=== PATIENT | female | born 1950 | race Caucasian/White ===

== ENCOUNTER 2019-08-29 02:45 | Inpatient (IN) | payer MEDICARE, BC ==
--- NOTE | 2019-08-29 02:55 | ED ---
Palpitations / Dysrhythmia - HPI Summary HPI Summary: The patient is a 69 y/o F arriving by ambulance to [facility] with palpitations since last night. She reports that she was getting ready for bed around 2230 last night when she felt rhythmic fast and pounding palpitations. She finally had gotten to sleep but then developed an abnormal sensation in the mid-sternal chest and into her right arm while the palpitations were still present. She took her BP at 0100 which was found to be 200/100 mmHg. In the ambulance, vitals were stable with BP of 180/90 mmHg. She notes that she had her HTN medication at 2100 last night as usual. She denies any SOB, nausea, diaphoresis , or dizziness. She felt okay during the day while at voodoo and at home. She does not have chest discomfort or palpitations now. This pain is different than when she had a NM in 1994 with stent placement in 2012 after having symptoms again. She has not had any episodes following the stent until now. Manager Psychology is Dr. Gomez. PMHx: DM, CAD, HLD, HTN, heart murmur. Nonsmoker, rare EtOH, no substance use. Medications reviewed. Allergies noted. - History of Current Complaint Hx Obtained From: Patient Onset/Duration: Lasting Hours, Resolved Timing: Constant Severity Initially: Moderate Severity Currently: None Character: Fast, Pounding Aggravating: Nothing Alleviating: Rest Associated Signs & Symptoms: Negative - Allergy/Home Medications Allergies/Adverse Reactions: Allergies Allergy/AdvReac Type Severity Reaction Status Date / Time No Known Allergies Allergy Verified 08/29/19 02:52 Home Medications: Home Medications Amlodipine Besylate [Amlodipine 2.5 mg tab] 2.5 mg PO DAILY 08/29/19 [History Confirmed 08/29/19] Ezetimibe 1 tab PO DAILY 08/29/19 [History Confirmed 08/29/19] Insulin Aspart [Novolog] 100 units .ROUTE SEE INSTRUCTIONS 08/29/19 [History Confirmed 08/29/19] Spironolactone 1 tab PO DAILY 08/29/19 [History Confirmed 08/29/19] PMH/Surg Hx/FS Hx/Imm Hx Endocrine/Hematology History: Reports: Hx Diabetes Cardiovascular History: Reports: Hx Angina, Hx Coronary Artery Disease - angioplasty 1994, Hx Hypercholesterolemia, Hx Hypertension, Hx Myocardial Infarction - 1994, Hx Valvular Heart Disease - heart murmur Denies: Hx Pacemaker/ICD Respiratory History: Denies: Hx Asthma, Hx Chronic Obstructive Pulmonary Disease (COPD) Musculoskeletal History: Denies: Hx Osteoporosis Sensory History: Reports: Hx Contacts or Glasses Denies: Hx Hearing Aid Opthamlomology History: Reports: Hx Contacts or Glasses Psychiatric History: Denies: Hx Panic Disorder - Cancer History Hx Chemotherapy: No Hx Radiation Therapy: No - Surgical History Surgical History: Yes Surgery Procedure, Year, and Place: CARDIAC STENT 06/11. PARTIAL PANCREATECTOMY. SPLEENECTOMY. Hx Anesthesia Reactions: No Infectious Disease History: No Infectious Disease History: Denies: Traveled Outside the [place] in Last 30 Days - Family History Known Family History: Positive: Hypertension - Social History Alcohol Use: Rare Hx Substance Use: No Substance Use Type: Reports: None Hx Tobacco Use: No Smoking Status (MU): Never Smoked Tobacco Review of Systems Negative: Skin Diaphoresis Positive: Palpitations - fast, pounding, Other - mid-sternal chest discomfort into right arm Negative: Shortness Of Breath Negative: Nausea All Other Systems Reviewed And Are Negative: Yes Physical Exam - Summary Physical Exam Summary: Appearance: Well-appearing, Well-nourished, lying in bed comfortably Skin: Warm, dry, no obvious rash Eyes: sclera anicteric, no conjunctival pallor ENT: mucous membranes moist, pharynx appears normal Neck: Supple, nontender Respiratory: Clear to auscultation, no signs of respiratory distress Cardiovascular: Normal S1, S2. No murmurs. Normal distal pulses in tibial and radial bilaterally. Abdomen: Soft, nontender, normal active bowel sounds present Musculoskeletal: Normal, Strength/ROM Intact Neurological: A&Ox3, awake and alert, mentation is normal, speech is fluent and appropriate Psychiatric: affect is normal, does not appear anxious or depressed Triage Information Reviewed: Yes Vital Signs Reviewed: Yes Procedures - Sedation Patient Received Moderate/Deep Sedation with Procedure: No Diagnostics - Laboratory Result Diagrams: 08/29/19 03:18 08/29/19 03:18 Lab Statement: Any lab studies that have been ordered have been reviewed, and results considered in the medical decision making process. - Radiology CXR Radiology Interpretation Completed By: ED Physician Summary of Radiographic Findings: No acute abnormality. ED physician has reviewed and interpreted this imaging report. Pending official read. - EKG 0301 Cardiac Rate: NL - 77 bpm EKG Rhythm: Sinus Rhythm Summary of EKG Findings: NSR at 77 BPM, incomplete LBBB, LVH. No STEMI. ED physician has reviewed and interpreted this EKG. 0443 Cardiac Rate: NL - 73 bpm EKG Rhythm: Sinus Rhythm Summary of EKG Findings: NSR at 73 BPM. LVH with secondary repolarization abnormality. No STEMI. ED physician has reviewed and interpreted this EKG. Re-Evaluation - Re-Evaluation First Eval Re-Evaluation Time: 04:15 Comment: Discussed results and plan for admission. Course/Dx - Course Course Of Treatment: 69 y/o F who has a history of NM with stents, HTN, CAD, HLD , and heart murmur, arriving by ambulance with rhythmic fast and pounding palpitations lasting since 2230 last night accompanied by abnormal sensation in the mid-sternal chest and into her right arm, all of which have since subsided. No SOB, nausea, diaphoresis, or dizziness. Physical exam reveals no acute abnormalities. Blood work obtained and reveals WBCs of 12.4, MCH of 33, sodium of 132, glucose of 349, and troponin of 0.32. Patient administered Insulin for hyperglycemia, Aspirin and Heparin. EKG at 0301 reveals NSR at 77 BPM, incomplete LBBB, LVH. Second EKG at 0443 reveals NSR at 73 BPM, LVH with secondary repolarization abnormality. Chest x-ray, per my interpretion, is negative for acute abnormality. Dr. Martinez from the hospitalist services accepts the patient for admission. Patient understands and agrees with plan. Dx of NSTEMI. - Diagnoses Provider Diagnoses: NSTEMI (non-ST elevated myocardial infarction) - Physician Notifications Discussed Care Of Patient With: Josh Martinez - hospitalist Time Discussed With Above Provider: 04:00 Instructed by Provider To: Other - I discussed the patient's case with Dr. Martinez , who accepts the patient for admission. - Critical Care Time Critical Care Time: 30-74 min - NSTEMI needing IV heparin and admission to hospital Discharge ED - Sign-Out/Discharge Documenting (check all that apply): Patient Departure - Patient accepted for admission by Dr. Martinez. - Discharge Plan Condition: Fair Disposition: ADMITTED TO [facility] - Billing Disposition and Condition Condition: FAIR Disposition: Admitted to [facility] - Attestation Statements Document Initiated by Jessica: Yes Documenting Scribe: Yolanda Robb Provider For Whom Jessica is Documenting (Include Credential): Dr. Chauncey Edwards MD Scribe Attestation: I, esha Bookeribed for Dr. Chauncey Edwards MD on 08/30/19 at 1050. Scribe Documentation Reviewed: Yes Provider Attestation: The documentation as recorded by the Yolanda burch accurately reflects the service I personally performed and the decisions made by me, Dr. Chauncey Edwards MD Status of Scribe Document: Viewed
[2019-08-29 03:25] LABS: ABS Basophils 0.1 10^3/ul (0-0.2); ABS Eosinophils 0.1 10^3/ul (0-0.6); ABS Lymphocytes 2.2 10^3/ul (1.0-4.8); ABS Monocytes 0.8 10^3/ul (0-0.8); ABS Neutrophils 9.1 10^3/ul (1.5-7.7); Eosinophil % 0.8 %; Hematocrit 38 % (35-47); Lymphocyte % 18.1 %; Mean Corpuscular HGB Conc 34 g/dL (31-36); Mean Corpuscular Hemoglobin 33 pg (27-31); Mean Corpuscular Volume 96 fL (80-97); Mean Platelet Volume 7.9 fL (7.4-10.4); Nucleated Red Blood Cells % 0.1; Platelet Count 277 10^3/uL (150-450); Red Blood Count 3.95 10^6 /uL (3.70-4.87); Red Cell Distribution Width 13 % (10-15); White Blood Count 12.4 10^3/uL (3.5-10.8)
[2019-08-29 03:29] LABS: INR 0.93 (0.82-1.09)
--- OUTSIDE RECORDS SUMMARY | 2019-08-29 03:38 | XMS REPORT | Continuity of Care Document ---
:1950 External Reference #:[id number] Author Name Cortney Bal NP (transmitted by agent of provider Lenora Lima) Address [address], [address] [place] [id number] Problems Active Problems Provider Date Mitral valve disorder Joaquin Gomez M.D. Onset: 04/21/2012 Coronary arteriosclerosis Joaquin Gomez M.D. Onset: 04/21/2012 Type 2 diabetes mellitus Joaquin Gomez M.D. Onset: 04/21/2012 Pure hypercholesterolemia Joaquin Gomez M.D. Onset: 04/21/2012 Benign essential hypertension Yue Husain N.Joy Onset: 06/24/2012 Type 1 diabetes mellitus Yue Husain, NNatePNate Onset: 06/24/2012 Fecal Smearing Unruly Mathew M.D. Onset: 12/16/2013 Atherosclerotic heart disease of [place] CARLOS Jenkins Onset: 05/22/2015 coronary artery without angina pectoris Essential hypertension CARLOS Jenkins Onset: 05/22/2015 Social History Type Date Description Comments Sex Unknown Tobacco Use Start: Unknown Never Smoked Cigarettes Second hand smoke Smoking Status Reviewed: 07/19/19 Never Smoked Cigarettes Second hand smoke ETOH Use Denies alcohol use Tobacco Use Start: Unknown Patient has never smoked Recreational Drug Use Negative For Denies Drug Use Exercise Type/Frequency Exercises sporadically Allergies, Adverse Reactions, Alerts Description No Known Drug Allergies Medications Active Medications SIG Qnty Indications Ordering Provider Date Amlodipine Besylate 1 by mouth 90tabs R60.9 Joaquin Jalloh 05/04/2019 2.5mg every day Garrett Gomez Tablets Spironolactone 1 by mouth 90tabs R60.9 Joaquin Jalloh 05/04/2019 25mg Tablets every day Garrett Gomez Zetia 1 by mouth 90tabs Carmen Caruso, 10/06/2016 10mg Tablets every day N.P. Crestor 1 by mouth 90tabs Joaquin Jalloh 09/22/2016 10mg Tablets every day Garrett Gomez Nitrostat one sl q5min up 25tabs Joaquin Jalloh 06/24/2012 0.4mg Tablets Sub to 3 doses as Garrett Gomez needed chest pain Altace 1 by mouth 90caps Joaquin Jalloh 05/04/2003 5mg Capsules every day Garrett Gomez Vitamin D3 1 tablet po Unknown 2000Units daily during summer months 2 po qd winter months Vitamin B12 1 tablet twice 90tabs Unknown 500mcg Tablets weekly Aspirin 1 by mouth Unknown 81mg Tablets every day Novolog (Insulin Pump) Unknown Medications Administered in Office Medication SIG Qnty Indications Ordering Provider Date Inj, Regadenoson, 0.1 MG Dominic Turner M.D. 11/25/2018 Injection Technetium TC 99M Tetrofosmin, Dominic Turner M.D. 11/25/2018 Per Unit Dose Up To 40 Millicuries Injection Immunizations Description No Information Available Vital Signs Date Vital Result Comment 07/19/2019 11:31am Height 68 inches 5'8" Weight 160.50 lb Heart Rate 62 /min BP Systolic Sitting 132 mmHg Lue reg cuff BP Diastolic Sitting 58 mmHg Lue reg cuff O2 % BldC Oximetry 96 % On Ra BMI (Body Mass Index) 24.4 kg/m2 05/24/2019 9:43am Height 68 inches 5'8" Weight 165.00 lb with shoes Heart Rate 60 /min BP Systolic Sitting 128 mmHg Rue reg cuff BP Diastolic Sitting 60 mmHg Rue reg cuff BP Systolic Standing 138 mmHg Rue reg cuff BP Diastolic Standing 60 mmHg Rue reg cuff Respiratory Rate 13 /min BMI (Body Mass Index) 25.1 kg/m2 Ejection Fraction 60-65% ECHO 11/22/2018 Results Test Acquired Facility Test Result H/L Range Note Date Laboratory test 05/23/2019 [facility] TSH (Thyroid 1.03 Normal 0.34-5.[address] Stimulating mcIU/[place] [address] Horm) [phone] Basic Metabolic 05/23/2019 [facility] Sodium 139 mmol/L Normal 135-[address] [place] [address] [phone] Potassium 4.3 mmol/L Normal 3.5-5.0 Chloride 104 mmol/L Normal 101-111 Co2 Carbon Dioxide 27 mmol/L Normal 22-32 Anion Gap 8 mmol/L Normal 2-11 Calcium 9.4 mg/dL Normal 8.6-10.3 Glucose 97 mg/dL Normal 70-100 Blood Urea Nitrogen 27 mg/dL High 6-24 Creatinine 1.10 mg/dL High 0.51-0.95 BUN/Creatinine Ratio 24.5 High 8-20 Egfr Non- 49.1 >60 Egfr 59.4 >60 2 Laboratory test 05/23/2019 [facility] Vitamin D 47.5 ng/mL Normal 20-[address] Total [address](Oh) [place] [address] [phone] 1 FASTING in 2 weeks Copy Result to: JUSTEN BURDEN ([id number]) 2 Because ethnic data is not always readily available, this report includes an eGFR for both -Americans and non- Americans. The National Kidney Disease Education Program (NKDEP) does not endorse the use of the MDRD equation for patients that are not between the ages of 18 and 70, are , have extremes of body size, muscle mass, or nutritional status, or are non- or non-. According to the National Kidney Foundation, irrespective of diagnosis, the stage of the disease is based on the level of kidney function: Stage Description GFR(mL/min/1.73 m(2)) 1 Kidney damage with normal or decreased GFR 90 2 Kidney damage with mild decrease in GFR 60-89 3 Moderate decrease in GFR 30-59 4 Severe decrease in GFR 15-29 5 Kidney failure <15 (or dialysis) 3 Total 25-Hydroxyvitamin D2 and D3 (25-OH-VitD) <10 ng/mL (severe deficiency) 10-19 ng/mL (mild to moderate deficiency) 20-50 ng/mL (optimum levels) 51-80 ng/mL (increased risk of hypercalciuria) >80 ng/mL (toxicity possible) Procedures Date Code Description Status 05/23/2019 11875 Holter Monitor Review (24 hr)dr vega & interp only Completed 05/16/2019 35703 ECG Monitor/Recording W/Visual Superimposition Scanning Completed 05/11/2019 62811 Sleep Study Unattended,HRT Rate,Oxygen Sat,Resp Completed Effort/Airflow 05/04/2019 08714 EKG Tracing & Interpretation Completed Medical Devices Description No Information Available Encounters Type Date Location Provider Dx Diagnosis Office Visit 05/24/2019 [facility] Carmen Caruso, I10 Essential ( primary) 10:00a Of Software Program Manager N.P. hypertension I35.0 Nonrheumatic aortic (valve) stenosis I25.10 Athscl heart disease of [place] coronary artery w/o ang pctrs I44.7 Left bundle-branch block, unspecified Office Visit 05/11/2019 9:30a [facility] G47.9 Sleep disorder, [facility] unspecified Software Program Manager R53.83 Other fatigue Office Visit 05/04/2019 11:20a [facility] Joaquin Jalloh I10 Essential (primary) Garrett Gomez hypertension I35.0 Nonrheumatic aortic (valve) stenosis I71.2 Thoracic aortic aneurysm, without rupture I25.10 Athscl heart disease of [place] coronary artery w/o ang pctrs I44.7 Left bundle-branch block, unspecified E78.00 Pure hypercholesterolemia, unspecified R42 Dizziness and giddiness R60.9 Edema, unspecified Assessments Date Code Description Provider 07/19/2019 G47.33 Obstructive sleep apnea (adult) Cortney Bal NP (pediatric) 07/19/2019 R53.83 Other fatigue Cortney Bal NP 05/24/2019 I10 Essential (primary) hypertension Carmen Caruso, N.P. 05/24/2019 I35.0 Nonrheumatic aortic (valve) stenosis Carmen Caruso, N.P. 05/24/2019 I25.10 Atherosclerotic heart disease of [place] Carmen Caruso, N.P. coronary artery with 05/24/2019 I44.7 Left bundle-branch block, unspecified Carmen Caruso, N.P. 05/23/2019 R42 Dizziness and giddiness Joaquin Gomez M.D. 05/16/2019 R42 Dizziness and giddiness Nurse Visit IC 05/11/2019 R06.83 Snoring Pearl Iniguez MD 05/11/2019 G47.9 Sleep disorder, unspecified Pearl Iniguez MD 05/11/2019 R53.83 Other fatigue Pearl nIiguez MD 05/04/2019 I10 Essential (primary) hypertension Joaquin Gomez M.D. 05/04/2019 I35.0 Nonrheumatic aortic (valve) stenosis Joaquin Gomez M.D. 05/04/2019 I71.2 Thoracic aortic aneurysm, without rupture Joaquin Gomez M.D. 05/04/2019 I25.10 Atherosclerotic heart disease of [place] Joaquin Gomez M.D. coronary artery with 05/04/2019 I44.7 Left bundle-branch block, unspecified Joaquin Gomez M.D. 05/04/2019 E78.00 Pure hypercholesterolemia, unspecified Joaquin Gomez M.D. 05/04/2019 R42 Dizziness Joaquin Gomez M.D. 05/04/2019 R60.9 Edema Joaquin Gomez M.D. Plan of Treatment Future Appointment(s):09/05/2019 10:00 am - Cortney Bal NP at [facility]09/07/2019 11:40 am - Joaquin Gomez M.D. at [facility]07/19/2019 - Cortney Bal NPG47.33 Obstructive sleep apnea (adult) (pediatric)Follow up:6 weeksRecommendations:You are being set up with CPAP for your sleep apnea through [facility] . 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 If you have difficulty with your equipment, or need to replace your mask or hoses, please contact your homecare agency. If you have any further questions, please call the [facility] at [phone] Ifyou have any sleepiness while driving you MUST avoid operating a vehicle or machinery. If you feel tired while driving brisket puller and take a nap or switch drivers. If you know you are sleepy and need togo somewhere, arrange for a ride or use public transportation. It is very important to not risk yoursafety or the safety of others.R53.83 Other fatigue Functional Status Description No Information Available Mental Status Description No Information Available Referrals Description No Information Available
[2019-08-29 03:41] LABS: ALT 11 U/L (7-52); AST 18 U/L (13-39); Albumin/Globulin Ratio 1.3 (1-3); Alkaline Phosphatase 70 U/L (34-104); Anion Gap 6 mmol/L (2-11); BUN/Creatinine Ratio 22.3 (8-20); Blood Urea Nitrogen 21 mg/dL (6-24); CO2 Carbon Dioxide 25 mmol/L (22-32); Calcium 8.9 mg/dL (8.6-10.3); Chloride 101 mmol/L (101-111); EGFR African American 71.2 (>60); EGFR Non-African American 58.9 (>60); Globulin 3.2 g/dL (2-4); Glucose 349 mg/dL (70-100); Sodium 132 mmol/L (135-145); Total Protein 7.2 g/dL (6.4-8.9)
[2019-08-29 03:51] LABS: Troponin I 0.32 ng/mL (<0.03)
[2019-08-29] MEDS ORDERED: Aspirin TAB* 325 MG PO ONE (03:59)
[2019-08-29] MEDS ORDERED: Heparin DRIP 25,000 UNITS(*) 25,000 UNITS/500 ML BAG IV SCH (04:00)
[2019-08-29] MEDS ORDERED: Heparin VIAL(*) 5000 UNITS/ML VIAL (FIVE THOUSAND) IV PRN (04:06)
[2019-08-29] MEDS ORDERED: Aspirin 81 mg CHEW TAB* 81 MG TAB.CHEW ONE (04:08)
[2019-08-29] MEDS ORDERED: Aspirin 81 mg CHEW TAB* 81 MG TAB.CHEW PO ONE (04:26)
[2019-08-29] MEDS: Insulin REGULAR(*) 1 UNITS UNIT SUBCUT ONE ×2 (04:27→05:15)
[2019-08-29 04:32] LABS: Activated Partial Thrombo Time 31.5 seconds (26.0-38.0)
[2019-08-29] MEDS ORDERED: Nitroglycerin TAB 0.4 MG* 0.4 MG TAB SL PRN (05:50)
[2019-08-29] MEDS ORDERED: Atenolol TAB* 25 MG PO SCH (06:00)
[2019-08-29] MEDS ORDERED: hydrALAZINE IV* 20 MG/ML VIAL IV SLOW PU PRN (06:06)
[2019-08-29 06:39] LABS: Cholesterol 143 mg/dL; HDL Cholesterol 63.1 mg/dL; LDL Cholesterol 72 mg/dL; Triglycerides 41 mg/dL
[2019-08-29 06:48] LABS: Troponin I 1.06 ng/mL (<0.03)
[2019-08-29] MEDS ORDERED: Ticagrelor* 90 MG TAB PO ONE (08:35)
--- NOTE | 2019-08-29 08:38 | HP ---
CC: Dr. Joaquin Gomez; Dr. Phuong Camara* ADMISSION HISTORY AND PHYSICAL: DATE OF ADMISSION: 08/29/19 PRIMARY CARE PHYSICIAN: Dr. Phuong Camara. BOSS MINER: Dr. Joaquin Gomez. CHIEF COMPLAINT: Palpitations and abnormal sensation in the chest. HISTORY OF PRESENT ILLNESS: This is a 69-year-old female with past medical history of coronary artery disease status post MD in 1994 with stenting in 2012 to [facility], history of diabetes, hypertension, dyslipidemia, and mitral valve disorder, here for palpitation and abnormal sensation in her chest. The patient states that she has been having cough for the last 5 days, nonproductive and was otherwise okay. Yesterday, she was getting ready to bed around 10:30 and she started feeling rhythmic, fast, pounding palpitations type sensation and she finally got some sleep; however, within half an hour of the sleep she started having abnormal sensation in the midsternal area, which was going to both arms and the palpitations were again back. She checked her blood pressure and found to be 200/100. She called the ambulance and en route to the ER they checked her BP again and was persistently elevated. By the time she reached the emergency room, her symptoms had resolved. She clearly states that she never actually had any chest pain, so she never received any nitro. She denies any shortness of breath, nausea, vomiting, or diaphoresis. No other abdominal pain, diarrhea, constipation, any urinary burning sensation or any fever or chills. No other numbness, tingling, or weakness. PAST MEDICAL HISTORY: As mentioned, coronary artery disease status post MD in 1994 with a stent placed in the RPDA in 2012 and then a followup cardiac cath in 2016, which was showing some nonobstructive cardiomyopathy, history of mild stool incontinence, type 2 diabetes diagnosed in her 40s initially was on oral medication, but recently switched to insulin pump, history of hypertension with hypercholesterolemia, mitral valve disease, and history of GI bleed for which she needed some cauterization, history of thrombotic thrombocytopenic purpura in 1971. 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 HOME MEDICATIONS: The patient is currently on: 1. Atenolol 12.5 mg oral daily. 2. NovoLog via insulin pump. 3. Vitamin B12 1 tablet oral daily. 4. Aspirin 81 mg oral daily. 5. Ezetimibe 1 tablet oral daily. 6. Vitamin D 4000 units oral daily. 7. Crestor 10 mg oral daily. 8. Ramipril 5 mg oral daily. 9. Nitroglycerin 0.4 mg sublingual p.r.n. pain. 10. Spironolactone 1 tablet oral daily. 11. Amlodipine 2.5 mg oral daily. ALLERGIES: No known drug allergies. FAMILY HISTORY: Father at age 92 with dementia. Mother at age 79 with stroke and a brother at age 57 after he had a kidney transplant and an MD. SOCIAL HISTORY: She never had any smoking, alcohol or drug use. She lives at home, used to live by herself but then recently her grandkids, who were roughly 9 years of age, are living with her. 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 REVIEW OF SYSTEMS: A 14-point review of system systems did not reveal any new information other than what is mentioned in the HPI. PHYSICAL EXAMINATION GENERAL: The patients is awake, alert, oriented to time place and person. VITAL SIGNS: In the ER BP was noted to be 183/76, heart rate 76, respiration rate 14, saturating 99% on room air, temperature recorded at 97.8. HEAD AND NECK: Atraumatic, normocephalic. Bilateral pupils were reactive. Oral mucosa was moist. Neck is supple. No jugular venous distention. LUNGS: Clear to auscultation bilaterally. No wheezing, rhonchi, or rales. HEART: S1, S2. Regular rate and rhythm. ABDOMEN: Soft, nontender, nondistended. DIAGNOSTIC STUDIES/LAB DATA: CBC was showing some mildly elevated white count of 12.4, hemoglobin and hematocrit and platelets were within normal limits. Coagulation profile unremarkable. Comprehensive metabolic panel was unremarkable except for minimally elevated random glucose at 349. Troponin I was elevated at 0.32. There was no old troponin to compare. EKG showed sinus rhythm with ST elevation in the V1, which is isolated with T- wave inversions in aVL, again isolated present in the both EKGs performed today. However, when compared to an old EKG from 2012, the T-wave inversions in aVL were not present and there was no ST elevation. The current EKG also shows some left bundle branch block, unclear if this is new or old. IMPRESSION: This is a 69-year-old female with history of coronary artery disease here due to palpitations and abnormal sensation noted to have abnormally elevated troponin at 0.32, likely [id number] myocardial infarction. ASSESSMENT: 1. Elevated troponin likely [id number] myocardial infarction. The patient was already started on heparin drip, may consult Cardiology in the morning and followup echocardiogram and consider stress test per Cardiology versus direct coronary catheterization to evaluate any obvious myocardial infarction. 2. History of diabetes. We will start the patient on a.c. fingersticks and considering continuing the insulin drip. 3. History of hypertension, appears to be in hypertensive emergency. We will start the patient on IV hydralazine and restart home BP medications and monitor blood pressure. 4. History of dyslipidemia. Restart his statin and check her lipid panel. 5. DVT prophylaxis. The patient already on a heparin drip. 6. Code status. Full code with daughterHortencia being healthcare proxy. [id number]/[id number] #: [id number] PARTHA
--- NOTE | 2019-08-29 08:44 | CONSULT ---
Subjective Date of Service: 08/29/19 Interval History: Date of admission and consult 08/29/2019 PCP: Dr. Camara [employer] Extension Educator: Dr. Gomez CC: chest and arm discomfort, racing heart Reason for consult: NSTEMI, probably type 1 [place] HPI: Malia Randle is a 69 year old woman with a history as below. She was in her usual state of health until she developed last night palpitations around 10 pm described as strong, fast, regular heart rate (objectively on home vitals was 120 bpm) and no arrhythmia here. This was associated with chest and bilateral arm discomfort that lasted a total of less than 4 hours and is now resolved. At one point, low dose atenolol was stopped due to bradycardia. She was admitted and ruled in for ACS and is being medically treated. She is currently pain free Pmhx: DM 1 on pump HTN Hyperlipidemia CAD Aortic stenosis ? HFpEF GI Bleed - (07/2006) developed on asa, plavix, and nsaids for sciatica. bleeding gastric ulcer. rxed with antral cautery by Dr. Mcwilliams. No longer takes nsaids, not currently on a ppi intermittent LBBB Allergies: No Known Drug Allergy 05/05/03 allergy list reviewed on 05/24/2019 FH: Diabetes, Heart Disease, Kidney Disease, Hypertension, Stroke, Hypercholesterolemia. Father: due to Stroke - at age 92. Mother: due to High Cholesterol Neurologic Disorder Confined To W/C. Siblings:2. Brother 1: due to Car Accident. Brother 2: due to Kidney Disease; R/T Diabetes Kidney Transplant. SH: Marital: .Lives With: Alone - Takes care of grandchildren. 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 Patient has never smoked. Denies alcohol use. Drug Use: Denies Drug Use. Medications Active Medications: Amlodipine Besylate (Norvasc Tab*) 2.5 mg PO DAILY [facility] Last Admin: 08/29/19 08:12 Dose: 2.5 mg Aspirin (Aspirin Ec Tab*) 81 mg PO DAILY [facility] Last Admin: 08/29/19 08:14 Dose: Not Given Atorvastatin Calcium (Lipitor*) 20 mg PO DAILY [facility] Last Admin: 08/29/19 08:14 Dose: 20 mg Cholecalciferol (Vitamin D Tab*) 4,000 units PO DAILY [facility] Last Admin: 08/29/19 08:13 Dose: 4,000 units Cyanocobalamin (Vitamin B12 Tab*) 500 mcg PO DAILY [facility] Last Admin: 08/29/19 08:14 Dose: 500 mcg Ezetimibe (Zetia Tab*) 10 mg PO DAILY [facility] Heparin Sodium (Porcine) (Heparin Vial(*)) 0 units IV .FOR BOLUSES PRN PRN Reason: HEPARIN DRIP BOLUSES Last Admin: 08/29/19 04:27 Dose: 4,000 units Hydralazine HCl (Apresoline Iv*) 5 mg IV SLOW PU Q6H PRN PRN Reason: Systolic Bp Greater Than:160 Heparin Sodium/Dextrose (Heparin Drip 25,000 Units(*)) 25,000 units in 500 mls @ 0 mls/hr IV PER RATE [facility]; Protocol Last Admin: 08/29/19 04:28 Dose: 14.2 mls/hr Nitroglycerin (Nitroglycerin Tab 0.4 Mg*) 0.4 mg SL . NEEDED PRN PRN Reason: chest pain Ramipril (Altace Cap*) 5 mg PO BEDTIME [facility] Spironolactone (Aldactone Tab*) 25 mg PO DAILY [facility] Last Admin: 08/29/19 08:14 Dose: 25 mg Ticagrelor (Brilinta*) 180 mg PO ONCE ONE Stop: 08/29/19 08:36 Ticagrelor (Brilinta*) 90 mg PO BID [facility] Home Medications: Aspirin [Aspir 81] 1 tab PO DAILY 06/24/12 [History Confirmed 08/29/19] Cholecalciferol TAB* [Vitamin D TAB*] 4,000 units PO DAILY 06/24/12 [History Confirmed 08/29/19] Cyanocobalamin [Vitamin B-12] 1 tab PO DAILY 06/24/12 [History Confirmed ] Ramipril CAP* [Altace CAP*] 5 mg PO DAILY 12/04/14 [History Confirmed 08/29/19] Nitroglycerin TAB 0.4 MG* 0.4 mg SL . NEEDED PRN 04/22/16 [History Confirmed 08/29/19] Rosuvastatin Calcium [Crestor] 10 mg PO DAILY 04/22/16 [History Confirmed ] Amlodipine Besylate [Amlodipine 2.5 mg tab] 2.5 mg PO DAILY 08/29/19 [History Confirmed 08/29/19] Ezetimibe 1 tab PO DAILY 08/29/19 [History Confirmed 08/29/19] Insulin Aspart [Novolog] 100 units .ROUTE SEE INSTRUCTIONS 08/29/19 [History Confirmed 08/29/19] Spironolactone 1 tab PO DAILY 08/29/19 [History Confirmed 08/29/19] Review of Systems - Measurements Intake and Output: Intake and Output Last 24 Hours 08/27/19 08/28/19 08/29/19 08/30/19 06:59 06:59 06:59 06:59 Intake Total 38.4 Balance 38.4 Weight 150 lb Intake: Heparin 38.4 - Review of Systems Constitutional Symptoms: Negative: Weight Gain, Weight Loss, Fatigue, Fever Dermatology: Negative: Rash, Skin Lesions HEENT: Negative: Change in Hearing, Vertigo Eyes: Negative: Change in Vision, Double Vision Thyroid: Negative: Weight Loss, Weight Gain Pulmonary: Negative: Cough, Sputum, Hemoptysis, Respiratory Distress, Shortness of Breath, Asthma, Home Oxygen Cardiology: Negative: Shortness of Breath, Swelling of Ankles, Peripheral Vascular Dis, Syncope, Claudication, Paroxysmal Nocturnal Dyspnea, Orthopnea Gastroenterology: Negative: Blood in Stools, Haematemesis, Melena Genital - Urinary: Negative: Dysuria, Hematuria Musculoskeletal: Negative: Joint Pain, Joint Stiffness Endocrinology: Positive: Diabetes Negative: Polydipsia, Polyuria Hematologic/Lymphatic: Positive: Use of Antiplatelet Drugs Negative: Use of Anticoagulant Neurology: Negative: Change in Speech, Change in Sphincter Function, Change in Walking, Hx of Stroke\TIA, Hx Seizures Psychiatry: Negative: Unusual Anxiety, Suicidal Ideation Allergic/Immunologic: Negative: Hx HIV, Immunocompromise Review of Systems Statement: All other review of systems negative, unless stated above. Objective Vital Signs: Temp Pulse Resp BP Pulse Ox 98.2 F 65 16 147/58 97 08/29/19 08:02 08/29/19 08:02 08/29/19 08:02 08/29/19 08:02 08/29/19 08:02 Oxygen Devices in Use Now: None Appearance: nad, pleasant Ears/Nose/Mouth/Throat: Clear Oropharnyx, Mucous Membranes Moist Neck: NL Appearance and Movements; NL JVP, Trachea Midline Respiratory: Symmetrical Chest Expansion and Respiratory Effort, Clear to Auscultation Cardiovascular: RRR, No Edema, - - normal jvp, 1-2/6 systolic murmur Abdominal: NL Sounds; No Tenderness; No Distention Extremities: No Edema Skin: No Rash or Ulcers Neurological: Alert and Oriented x 3 Laboratory Results: 08/29/19 03:18 08/29/19 03:18 INR (Anticoag Therapy) 0.93 (0.82-1.09) 08/29/19 03:18 APTT 31.5 seconds (26.0-38.0) 08/29/19 03:18 Total Bilirubin 0.70 mg/dL (0.2-1.0) 08/29/19 03:18 AST 18 U/L (13-39) 08/29/19 03:18 ALT 11 U/L (7-52) 08/29/19 03:18 Alkaline Phosphatase 70 U/L (34-104) 08/29/19 03:18 Total Protein 7.2 g/dL (6.4-8.9) 08/29/19 03:18 Albumin 4.0 g/dL (3.2-5.2) 08/29/19 03:18 Globulin 3.2 g/dL (2-4) 08/29/19 03:18 Albumin/Globulin Ratio 1.3 (1-3) 08/29/19 03:18 Triglycerides 41 mg/dL 08/29/19 06:13 Cholesterol 143 mg/dL 08/29/19 06:13 LDL Cholesterol 72 mg/dL 08/29/19 06:13 HDL Cholesterol 63.1 mg/dL 08/29/19 06:13 08/29/19 08/29/19 03:18 06:13 Troponin I 0.32 H* 1.06 H* Diagnostic Imaging: Previous IL - (03/1995) cath 95% RPDA, 60% LAD, mild inferior hypokinesis. PTCA of RPDA. Cardiac Cath - (08/16/2009) 70% mid LAD, LCX nondom mid 75%, RCA dom free of sig disease, EF 55%. similar to 2006. med rx. Cardiac Catheterization - (04/23/2016) moderate to large PDA with a patent stent. Just beyond the stent there was a 30% stenosis. The LAD had luminal irregularities up to 30%. There was moderate plaque burden distally in the LAD. Circumflex had luminal irregularity , at most 30%. LV gram EF was 55% with mild dilatation of the ascending aorta. Cardiac Cath - (06/25/2012) chest pain, shortness of breath, inferior EKG changes. stress nuclear: 7 min (6 minutes of a Benigno and a reduced stage 2). chest discomfort during stage 2 with mild dyspnea requiring a slower pace and stop after 6 minutes, incomplete left bundle branch block with inferior lateral ST-T changes suggestive of ischemia. With exercise she had more pronounced QRS widening developing in the left bundle with more pronounced ST-T changes suggestive of ischemia large area of inferior posterior ischemia 06.25.[address] Walls: 60% proximal mid LAD lesion. LCX: moderate caliber vessel, proximal segment that is perhaps 50% lesion, right coronary artery with a large caliber dominant vessel and in proximal mid section there was plaquing up to 25%. The ostium of the right PDA: 99%, posterior lateral branch was a large distribution. EF nuclear scan was 65%. 2.5 x 16 mm Element stent in the PDA. Cardiac Cath - (03/2006) ef 40%, very small left cors. LAD mid 50%, LCX 70%, RCA non obstructive disease. Stress Test - (11/25/2018) [facility] Normal cardiac chemical nuclear stress test. No evidence of ischemia. No evidence of infarction. Normal left ventricular function. Low risk study. Ejection fraction: 64%. TID index: 0.77. Echocardiogram - (11/22/2018) Left ventricle cavity is normal size. Normal global wall motion. Visual EF is 55-60%. [place] trileaflet aortic valve with mild grade I (impaired)regurgitation. Mild to moderate aortic valve stenosis. Mild BY 2ND; Mild to moderate by continuity. Mild dilated ascending aorta. Carotid Doppler - (01/15/2018) 1. No hemodynamically significant stenosis of the right internal carotid artery by flow velocity measurements. This corresponds to a luminal diameter of less than 50% stenosis by NASCET criteria. 2. No hemodynamically significant stenosis of the left internal carotid artery by flow velocity measurements. This corresponds to a luminal diameter of less than 50% stenosis by NASCET criteria. Exam Date: 08/29/19 CHEST PA & LAT IMPRESSION: No acute cardiopulmonary process by radiograph. ekg 08/29/2019 NSR, LVH with repolarization abnormalities, unchanged on repeat Assessment/Plan Malia Randle is a 69 year old woman with PMHx including but not limited to UGIB on aspirin/plavix/nsaids as above, known CAD/IL as above, DM 1 admitted with NSTEMI likely type 1. Much less likely type 2 related to resolved arrhythmias. Currently pain free without hemodynamic instability, arrhythmia or CHF - Echocardiogram pending - Agree with medications as ordered except load brilinta 180 mg po x 1 now ( ordered) with 90 mg po bid and add PPI prophylaxis (ordered) - Suspect she would tolerate low dose toprol given the 05/2019 holter monitor but she is concerned with restarting beta-lakia so will hold off for now and reconsider prior to discharge - Cardiac catheterization with intent for revasculariation indicated and recommended. Risks, benefits and alternatives discussed and patient wishes to proceed. discussed with Dr. Mccarthy
[2019-08-29] MEDS ORDERED: Cholecalciferol TAB* 1000 UNITS PO SCH (09:00)
[2019-08-29] MEDS ORDERED: Cyanocobalamin TAB* 500 MCG PO SCH (09:00)
[2019-08-29] MEDS ORDERED: Ramipril CAP* 5 MG PO SCH ×2 (09:00→21:00)
[2019-08-29] MEDS ORDERED: Aspirin EC TAB* 81 MG TAB.EC PO SCH (09:00)
[2019-08-29] MEDS ORDERED: Ezetimibe TAB* 10 MG PO SCH (09:00)
[2019-08-29] MEDS ORDERED: Spironolactone TAB* 25 MG PO SCH (09:00)
[2019-08-29] MEDS ORDERED: Atorvastatin* 20 MG TAB PO SCH (09:00)
[2019-08-29] MEDS ORDERED: amLODIPine TAB* 5 MG PO SCH (09:00)
[2019-08-29] MEDS ORDERED: Pantoprazole TAB * 40 MG TAB PO SCH (09:00)
[2019-08-29 09:54] LABS: Troponin I 3.36 ng/mL (<0.03)
[2019-08-29] MEDS ORDERED: Perflutren Lipid Microsphere* 3 ML VIAL ONE (12:09)
[2019-08-29] MEDS ORDERED: Iodixanol 320 (CONTRAST) 100 ML SDV ONE (13:03)
[2019-08-29] MEDS ORDERED: fentaNYL* 50 MCG/ML 2 ML VIAL (100 MCG VIAL) ONE (13:03)
[2019-08-29] MEDS ORDERED: Midazolam* 1 MG/ML 5 ML VIAL (5 MG) ONE (13:03)
[2019-08-29] MEDS ORDERED: Heparin 2 UNITS/ML IVPREMIX* 2,000 ML IV ONE (13:04)
[2019-08-29] MEDS ORDERED: nitroGLYCERIN DRIP* 25,000 MCG/250 ML BTL ONE ×2 (13:04→16:55)
[2019-08-29] MEDS ORDERED: VERAPAMIL 2.5 MG/ML 2 ML VIAL ** 5 mg/2 ml ONE (13:04)
[2019-08-29] MEDS ORDERED: Heparin(*) 1000 UNIT/ML 10 ML VIAL CATH LAB IV ONE (13:04)
[2019-08-29] MEDS ORDERED: Lidocaine 1% INJ* 10 MG/ML 30 ML SDV ONE (13:04)
--- NOTE | 2019-08-29 13:30 | ECHO ---
*[facility]* [place] [address] Fax #: [phone] Transthoracic Echocardiogram Patient: Malia Randle : 1950 Study Date: 08/29/2019 Age: 69 Gender: F HR: 68 bpm Height: 68 in /172.7 cm BSA: 1.88 m^2 Weight: 163.7 lb /74.4 kg BMI: 24.9 kg/m^2 *Plating Foreman: * Cynthia Stanford RDCS RN *Referring Physician: * Johs Martinez *Reading Physician: * Kane Grimaldo MD Indications: Myocardial Infarction (new). History: Coronary artery disease. LA. PCI. Murmur. Risk factors: Hypertension. Diabetes mellitus. Dyslipidemia. Conclusions Summary: - Left ventricle: The cavity size is normal. Wall thickness is mildly increased. Systolic function is normal. The estimated ejection fraction is 60-65%. - Regional wall motion abnormality: Mild hypokinesis of the apical lateral and apical myocardium. - Right ventricle: The cavity size is normal. Systolic function is normal. - Left atrium: The atrium is normal in size. - Aortic valve: The findings are consistent with mild stenosis. There is mild to moderate regurgitation. - Pulmonary arteries: Systolic pressure can not be accurately estimated. Recommendations: Compared to prior study from 10/2018, apical wall motion abnormality now noted. Study data: Transthoracic echocardiogram. Procedure: Transthoracic echocardiography was performed. Image quality was fair. The study was technically limited due to difficult acoustic windows. Intravenous Definity 2 ml was administered to enhance imaging. Complete 2D, spectral Doppler, and color flow Doppler. Location: Bedside. Patient status: Inpatient. Patient room number: 442-02. Rhythm: Normal sinus rhythm. Findings Left ventricle: The cavity size is normal. Wall thickness is mildly increased. Systolic function is normal. The estimated ejection fraction is 60-65%. Regional wall motion abnormalities: Mild hypokinesis of the apical lateral and apical myocardium. There is no consistent Doppler evidence of clinically significant diastolic dysfunction. Right ventricle: The cavity size is normal. Systolic function is normal. Left atrium: The atrium is normal in size. Right atrium: The atrium is normal in size. Mitral valve: The leaflets are mildly thickened. There is no evidence of stenosis. There is mild regurgitation. Aortic valve: The annulus is calcified. The valve is trileaflet. The leaflets are mildly thickened and mildly calcified. The findings are consistent with mild stenosis. There is mild to moderate regurgitation. Tricuspid valve: The valve is structurally normal. There is no evidence of stenosis. There is mild regurgitation. Pulmonic valve: The valve is structurally normal. There is no evidence of stenosis. There is trace regurgitation. Aorta: Aortic root: The aortic root is not dilated. Ascending aorta: The ascending aorta is not dilated. Aortic arch: The aortic arch is not dilated. Pericardium: There is no pericardial effusion. Pulmonary arteries: The main pulmonary artery is normal-sized. Systolic pressure can not be accurately estimated. Systemic veins: Inferior vena cava: The vessel is normal in size. There is (>= 50%) respiratory change in the IVC dimension. Measurements Left ventricle Value Ref Aortic valve Value Ref CATALINA, LAX 4.3 cm 3.8 - 5.2 Nicolle diam, ED 2.0 cm ---- ESD, LAX 2.8 cm 2.2 - 3.5 Nicolle diam/bsa, ED 1.1 cm/m^2 ---- FS, LAX 35 % 27 - 45 Peak v, S 2.1 m/sec ---- PW, ED (H) 1.1 cm 0.6 - 0.9 VTI, S 49.0 cm ---- IVS/PW, ED 1 Mean grad, S 11.0 mm Hg ---- E', lat nicolle, TDI (L) 7.4 cm/sec >=10.0 Peak grad, S 18.0 mm Hg - --- E/e', lat nicolle, 9 LVOT/AV, VTI ratio 0.48 ---- TDI RYAN, VTI 1.50 cm^2 ---- E', med nicolle, TDI (L) 5.3 cm/sec >=7.0 RYAN, Vmax 1.60 cm^2 - --- E/e', med nicolle, 13 AR peak v 3.66 m/sec ---- TDI AR PHT 524 ms ---- E', avg, TDI 6.4 cm/sec AR peak grad 54 mm Hg ---- E/e', avg, TDI 11 <=14 Mitral valve Value Ref LVOT Value Ref Peak E 0.68 m/sec ---- Diam, S 2.00 cm Peak A 1.19 m/sec ---- Area 3.1 cm^2 Decel time 285 ms ---- Peak alondra, S 1.09 m/sec Peak E/A ratio 0.6 ---- VTI, S 23.5 cm Mean grad, S 2 mm Hg Pulmonic valve Value Ref SV 72 ml Peak v, S 0.9 m/sec ---- SV/bsa 38 ml/m^2 Peak grad, S 3.0 mm Hg ---- Ventricular septum Value Ref Aortic root Value Ref IVS, ED (H) 1.1 cm 0.6 - 0.9 Root diam 2.6 cm <4.1 Right ventricle Value Ref Ascending aorta Value Ref CATALINA, LAX 3.1 cm AAo AP diam, S 3.3 cm ---- CATALINA minor ax, A4C 2.8 cm 1.9 - 3.5 mid Aortic arch Value Ref Arch diam 2.9 cm ---- Left atrium Value Ref AP dim, ES 3.20 cm 2.70 - Decending aorta Value Ref 3.80 Ashleigh peak alondra 0.96 m/sec ---- ML dim, A4C 3.8 cm SI dim, A4C 4.3 cm Inferior vena cava Value Ref Vol/bsa, ES, 1-p 20 ml/m^2 11 - 40 Diam 1.8 cm ---- A4C Vol/bsa, ES, A/L 26 ml/m^2 16 - 34 Right atrium Value Ref ML dim, ES, A4C 3.2 cm 2.6 - 4.4 SI dim, ES, A4C 4.5 cm 3.4 - 5.3 Estimated RAP 3 mm Hg Legend: (L) and (H) kylie values outside specified reference range. Prepared and electronically signed by Kane Grimaldo MD 08/29/2019 13:29
[2019-08-29] MEDS ORDERED: Adenosine* 3 MG/ML VIAL ONE (14:43)
[2019-08-29] MEDS ORDERED: NS 0.9% 1000 ML** 1,000 ML IV SCH (15:30)
[2019-08-29] MEDS ORDERED: Insulin NOVOLOG* FOR INSULIN PUMP SUBCUT SCH (16:00)
[2019-08-29] MEDS ORDERED: amLODIPine TAB* 5 MG ONE (16:24)
[2019-08-29] MEDS ORDERED: amLODIPine TAB* 5 MG PO ONE (16:24)
[2019-08-29] MEDS ORDERED: Metoprolol Tartrate IV* 1 MG/ML 5 ML VIAL IV ONE (17:00)
[2019-08-29] MEDS ORDERED: nitroGLYCERIN DRIP* 25,000 MCG/250 ML BTL IV SCH (17:00)
[2019-08-29] MEDS ORDERED: Metoprolol Tartrate IV* 1 MG/ML 5 ML VIAL ONE (17:05)
[2019-08-29 19:18] VITALS: BP 157/73
[2019-08-29] MEDS ORDERED: Ticagrelor* 90 MG TAB PO SCH (21:00)
--- NOTE | 2019-08-29 23:44 | CATH ---
CC: Dr. Phuong Camara; Dr. Joaquin Gomez; [facility]* CARDIAC CATHETERIZATION REPORT: DATE OF PROCEDURE: 08/29/19 INDICATION FOR THE PROCEDURE: Asked by Dr. Kane Grimaldo (primary district supervisor in hospital) to perform cardiac catheterization in light of non-STEMI presentation. PROCEDURES: Coronary arteriography, diagnostic fractional flow reserve, analysis of proximal to mid left anterior descending artery lesion, left heart catheterization. CONSENT: The patient was interviewed and examined on the floor of the hospital where the risks and benefits were explained, she understood them and wished to proceed. PRE-CARDIAC CATHETERIZATION LABORATORY RESULTS: Hemoglobin and hematocrit of 13 and 38, platelet count 277,000, white count 12,400. The BUN and creatinine were 21 and 0.94. Sodium 132, potassium 4.0, chloride 101, bicarb 24. Troponin was 3.36. EQUIPMENT UTILIZED: 1. Right femoral artery sheath was an 11 cm length 5-Lebanese Yue sheath. 2. Diagnostic coronary catheters included an FL-4 curve 5-Lebanese catheter and FR-4 curve 5-Lebanese right coronary catheter. 3. The left heart catheterization catheter was a 5-Lebanese 145-degree angled pigtail catheter. 4. Diagnostic guidewire was a 150 length standard J-tip guidewire. 5. The fractional flow reserve catheter was an 185 cm length Comet pressure guidewire. 6. The closure device was a Mynx 5-Lebanese vascular closure device. MEDICATIONS GIVEN DURING THE PROCEDURE: The patient received local lidocaine in addition to 2000 units heparin bolus (the patient was already on a heparin drip prior to performing the DFR analysis). DESCRIPTION OF PROCEDURE: The patient was brought to the cardiovascular laboratory where a formal time-out was performed. She was prepped and draped in sterile fashion. Initially, the right radial artery was accessed by ultrasound and it was found to be borderline in size but attempts were made to cannulate it and were not successful. As this approach was aborted, no sheath was introduced. The right groin area was then anesthetized with 1% lidocaine, the right femoral artery was cannulated and the sheath was placed following by diagnostic coronary arteriography. Following this, an incision was made to perform DFR analysis of the mid left anterior descending artery lesion. ACT was drawn after additional heparin and was found to be in an acceptable range to place the wire. The wire was passed through the 5-Lebanese diagnostic catheter and initially collaborated just outside of the catheter. Following this, the fractional flow reserve wire was advanced across the mid left anterior descending artery area and assessment was recorded. Following this, the wire was removed. The artery was assessed to make sure no sequela from the procedure occurred. Following this, the catheter was removed and the sheath was removed and hemostasis was obtained with the Mynx closure device. Left heart catheterization was performed prior to the pressure analysis of the mid LAD lesion. The total contrast used was 110 cc of Omnipaque dye.Radition exposure - fluoro time -9.1mins, AirKerma - 958 mGy, DAP - [id number] RESULTS: HEMODYNAMIC DATA: Left heart catheterization reveals central aortic pressure 170/63 with a mean of 107. Left ventricular pressure 169 over left ventricular end- diastolic pressure of 16. (Of note, no left ventriculogram was performed as an extensive echocardiogram had already been performed just prior to the cardiac catheterization). CORONARY ARTERIOGRAPHY: A. Left coronary artery: 1. Left main: Widely patent. 2. Left anterior descending artery: Of note, the left anterior descending artery had calcium outlining it leading to the long segment leading to the first septal agricultural economist and first diagonal branch. Just past this point was an eccentric lesion which was difficult to visualize despite multiple views. Of note, seen in the LUANA caudal projection, there appeared to be either a significant ulcerated or an aneurysmal area extending from this region. Past this point, the rest of the left anterior descending artery proceeded to trifurcate into a moderate-sized diagonal branch with a thinner more medial diagonal branch and the continuation of what appears to be left anterior descending artery toward the apical region. The caliber of the medial diagonal branch was clearly small in nature. There were mild luminal irregularities but no critical lesion seen throughout these vessels. 3. Circumflex artery - a nondominant vessel supplying a very thin first obtuse marginal branch. The artery had a 75% lesion seen in the mid portion of the circumflex prior to leading to a trifurcating a low lying obtuse marginal branch. Of note, between the very first thin obtuse marginal branch and the low lying obtuse marginal branch, I cannot rule out the presence of a small occluded mid obtuse marginal branch. I did not see any significant retrograde filling along the course of that. B. Right coronary artery - a dominant vessel supplying a long PDA and 2 posterior left ventricular branches. There were mild luminal irregularities seen in the mid portion, but no significant stenosis seen. In the LEE projection, interestingly, at the distal area of the posterior descending artery , there appeared to be faint filling of collateralization to some artery at the apical lateral region of the heart. It is perhaps best seen in the AP cranial view of the right coronary artery at the end of the injection. Of note, the proximal portion of the posterior descending artery had a mild 35% obstruction noted. DIAGNOSTIC DIASTOLIC FRACTIONAL FLOW RESERVE ANALYSIS OF MID LAD: On placement of the pressure wire across the left anterior descending artery and obtaining diastolic fractional flow reserve analysis revealed a value of 0.77 consistent with a significant obstructive lesion. OVERALL ASSESSMENT: suggests the finding of significant disease involving the mid portion of left anterior descending artery as noted with fractional flow reserve analysis across this blockage. Mild disease present elsewhere, although distal vessels in general appeared to be small in caliber, most likely secondary to her underlying chronic insulin-requiring diabetes mellitus. It should be noted on her echocardiogram just prior to the cardiac catheterization , there was very mild hypokinesis noted to the apical lateral region of the left ventricle which may correlate to where the collateral blood flow was seen from the distal right coronary artery as described above. Of note, after extensive discussion with both Dr. Kane Marmolejo as well as with Dr. Amando Cortez, ticketing clerk at the [facility], he felt intervening on the mid LAD lesion given the potential aneurysmal area would make extending somewhat difficult in nature, especially with the calcium. He strongly would recommend debulking the region first with rotational atherectomy to assure a good result. We also discussed that he had possibility of bypassing to perhaps the largest of the 3 vessels of the LAD system and perhaps bypassing the low lying obtuse marginal branch which is compromised by the mid circumflex lesion. These recommendations will be discussed with the patient with consideration for transfer to [facility] for further management of her acute coronary presentation. [id number]/[facility] #: [id number] [facility]ITAL[facility]as
--- NOTE | 2019-08-30 03:52 | DS ---
CC: Dr. Camara; Dr. Gomez; Dr. Grimaldo; Dr. Mccarthy; Dr. Juno Cortez; Dr. Campbell DISCHARGE SUMMARY/TRANSFER SUMMARY: DATE OF ADMISSION: 08/29/19 DATE OF DISCHARGE: 08/29/19 PRIMARY CARE PROVIDER: Dr. Camara SEED SERVICE ADVISOR: Dr. Gomez. CONSULTING SEED SERVICE ADVISOR: Dr. Grimaldo. CONSULTING HOOP ROLLS OPERATOR: Dr. Mccarthy. HOOP ROLLS OPERATOR: At [facility], Dr. Juno Cortez. ACCEPTING HOSPITALIST: At [facility], Dr. Campbell. DISCHARGE DIAGNOSIS: Non-ST elevation myocardial infarction. SECONDARY DIAGNOSES: 1. Coronary artery disease. 2. Status post myocardial infarction in 1994 with stent placed to posterior diagonal artery in 2012 and followup cardiac cath in 2015. 3. Type 2 diabetes, on an insulin pump. 4. Hypertension. 5. Hyperlipidemia. 6. Aortic stenosis. 7. Probable heart failure with preserved ejection fraction. 8. Gastrointestinal bleed in 2005 while on aspirin, Plavix, and NSAIDs for sciatica. Endoscopy show ed gastric ulcer, treated with antral cautery, that she no longer takes NSAIDs, does not need PPIs. ALLERGIES: No known drug allergies. MEDICATIONS AT THE TIME OF TRANSFER: 1. Amlodipine 2.5 mg p.o. daily. 2. Aspirin 81 mg p.o. daily. 3. Atorvastatin 10 mg p.o. daily. 4. Cholecalciferol 4000 units p.o. daily. 5. Cyanocobalamin 500 mcg p.o. daily. 6. Ezetimibe 10 mg p.o. daily. 7. Hydralazine 5 g IV q.6 hours p.r.n. SBP greater than 160. 8. Insulin aspart per pump protocol. 9. Nitroglycerin drip at 5 mcg per min. 10. Pantoprazole 40 mg p.o. daily. 11. Ramipril 5 mg p.o. at bedtime. 12. Normal saline 100 mL an hour for 4 more hours should be completed at 7:30 p.m. 13. Spironolactone 25 mg p.o. daily. 14. Brilinta 90 mg p.o. b.i.d. The patient was on a heparin drip and this was discontinued prior to her cath. HOSPITAL COURSE: Ms. Randle is a 69-year-old with past medical history as stated above that presente d to the emergency room with complaints of palpitations and an abnormal sensation in her chest. Her initial troponin was 0.32 and it went up to 3.3. She was seen in consultation by Cardiology (Dr. Grimaldo) and his impression was the patient most likel y having non-STEMI type 1 and at the time his evaluation she was chest pain free without hemodynamic instability, arrhythmia, or signs of congestive heart failure. He contacted Interventional Cardiolog y and Dr. 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 Her mid circ umflex had 75% to 80% blockage and was a small caliber vessel. Proximal PDA from RCA had a 45% blocka ge. Due to all those findings including the heavily calcified proximal LAD, Dr. Mccarthy discussed the case with Dr. Juno Cortez, associate professor of education at [facility], and decision was ma de to transfer the patient to consider further treatment strategies including high risk PCI versus CA BG. After the cardiac cath, the patient remained hypertensive and initially she received amlodipine. As uncontrolled hypertension continued, the patient was started on nitroglycerin drip and she is now on 5 mcg/min with a blood pressure of 149/75. At the time of transfer, the patient denied chest pain, palpitations, shortness of breath. PHYSICAL EXAM: Vital Signs: Temperature 97.3, heart rate is 79, respiratory rate is 17, oxygen satu ration is 98% on room air, blood pressure is 149/75. General: The patient is a pleasant elderly lady lying on bed in no acute distress. CVS: Normal S1, S2. Regular rate and rhythm. Chest: Breath so unds bilaterally with no added sounds. Abdomen is soft, bowel sounds present. Extremities: No anayeli a. She has a clean dressing intact to the right groin area with no signs of active bleeding at this time. Neuro: She is alert x3. Able to move all 4 extremities. CONDITION AT THE TIME OF DISCHARGE: Fair. DISPOSITION: [facility]. STATUS IN HOSPITAL: Inpatient. DIET: N.p.o. ACTIVITY: Bedrest. Please keep in mind this is a summarized version of this patient's hospital stay. If you need more in formation, please feel free to call me at [phone] or obtain the full medical records. TIME SPENT: Approximately 45 minutes was spent to complete this discharge. [id number]/[facility] #: [id number]
== END 2019-08-29 19:45 | disposition short-term general hospital (02) | DRG 281 ==
LOC: ED 02:45 → MEDTELE 05:35 → ICU 18:23
PROVIDERS: ADMIT Internal Medicine; ATTEND Internal Medicine
PROC: B2111ZZ Fluoroscopy of Multiple Coronary Arteries using Low Osmolar Contrast (ICD-10-PCS; 2019-08-29)
PROC: 4A033BC Measurement of Arterial Pressure, Coronary, Percutaneous Approach (ICD-10-PCS; 2019-08-29)
PROC: 4A023N7 Measurement of Cardiac Sampling and Pressure, Left Heart, Percutaneous Approach (ICD-10-PCS; principal; 2019-08-29 13:15)
DX: I21.4 Non-ST elevation (NSTEMI) myocardial infarction (principal); I42.8 Other cardiomyopathies; I50.30 Unspecified diastolic (congestive) heart failure; I25.10 Atherosclerotic heart disease of native coronary artery without angina pectoris; E11.9 Type 2 diabetes mellitus without complications; E78.00 Pure hypercholesterolemia, unspecified; E78.5 Hyperlipidemia, unspecified; I44.7 Left bundle-branch block, unspecified; R00.1 Bradycardia, unspecified; I35.0 Nonrheumatic aortic (valve) stenosis; I11.0 Hypertensive heart disease with heart failure; Z96.41 Presence of insulin pump (external) (internal); Z79.4 Long term (current) use of insulin; Z79.82 Long term (current) use of aspirin; I25.2 Old myocardial infarction; Z95.5 Presence of coronary angioplasty implant and graft; Z87.11 Personal history of peptic ulcer disease; Z79.02 Long term (current) use of antithrombotics/antiplatelets; Z79.899 Other long term (current) drug therapy
CPT/HCPCS: 36415; 71046; 76937; 80053; 80061; 84484; 85025; 85347; 85610; 85730; 93005; 93306; 93458; 99284; A9270-GY; C1887; C8929; J0153; J1644; J2250; J3010; J3490

== ENCOUNTER 2021-04-09 12:03 | Observation (INO) ==
[2021-04-09 14:19] LABS: ABS Basophils 0.1 10^3/ul (0-0.2); ABS Eosinophils 0.1 10^3/ul (0-0.6); ABS Lymphocytes 2.6 10^3/ul (1.0-4.8); ABS Neutrophils 6.4 10^3/ul (1.5-7.7); Eosinophil % 1.4 %; Hematocrit 40 % (35-47); Hemoglobin 13.7 g/dL (12.0-16.0); Lymphocyte % 25.5 %; Mean Corpuscular HGB Conc 34 g/dL (31-36); Mean Corpuscular Hemoglobin 33 pg (27-31); Mean Corpuscular Volume 98 fL (80-97); Mean Platelet Volume 8.6 fL (7.4-10.4); Platelet Count 249 10^3/uL (150-450); Red Blood Count 4.12 10^6 /uL (3.70-4.87); Red Cell Distribution Width 13 % (10-15); White Blood Count 10.2 10^3/uL (3.5-10.8)
[2021-04-09 14:44] LABS: Albumin 4.3 g/dL (3.2-5.2); Albumin/Globulin Ratio 1.4 (1-3); Calcium 9.6 mg/dL (8.6-10.3); EGFR Non-African American 42.1 (>60); Globulin 3.1 g/dL (2-4); Potassium 4.4 mmol/L (3.5-5.0); Total Bilirubin 1.3 mg/dL (0.2-1.0); Total Protein 7.4 g/dL (6.4-8.9)
[2021-04-09] MEDS ORDERED: hydrALAZINE 20 mg/ml 1 ML Vial IV IV SLOW PU PRN (21:22)
[2021-04-10] MEDS ORDERED: Ondansetron 4 mg VIAL 2 MG/ML 2 ml VIAL IV PRN (00:32)
[2021-04-10] MEDS ORDERED: Insulin ASPART (NF) 1 UNIT SUBCUT SCH (06:00)
[2021-04-10] MEDS ORDERED: Enoxaparin 40 MG/0.4 ML SYR SUBCUT SCH (06:00)
[2021-04-10 07:17] LABS: HDL Cholesterol 55.2 mg/dL
[2021-04-10] MEDS ORDERED: Nitroglycerin 0.2 mg/hr PATCH (5 mg) TRANSDERM SCH (09:00)
[2021-04-10] MEDS ORDERED: Cholecalciferol (VIT D3) 1,000 unit TAB PO SCH (09:00)
[2021-04-10] MEDS ORDERED: Iodixanol (CONTRAST) 320 MG/ML 100 ML SDV IV ONE (09:15)
[2021-04-10] MEDS ORDERED: INSULIN ASPART FOR INSULIN PUMP SUBCUT SCH (11:00)
[2021-04-10 15:47] VITALS: BP 157/49
== END 2021-04-10 18:30 | disposition home or self-care (01) ==
LOC: ED 12:03 → MEDTELE 12:03
PROVIDERS: ADMIT Internal Medicine; ATTEND Hospitalist

== ENCOUNTER 2021-08-23 22:29 | Inpatient (IN) ==
[2021-08-23 23:05] LABS: ABS Basophils 0.2 10^3/ul (0-0.2); ABS Lymphocytes 1.7 10^3/ul (1.0-4.8); ABS Monocytes 0.6 10^3/ul (0-0.8); ABS Neutrophils 9.5 10^3/ul (1.5-7.7); Eosinophil % 0.2 %; Hematocrit 38 % (35-47); Hemoglobin 12.8 g/dL (12.0-16.0); Lymphocyte % 14.5 %; Mean Corpuscular HGB Conc 34 g/dL (31-36); Mean Corpuscular Hemoglobin 33 pg (27-31); Mean Corpuscular Volume 96 fL (80-97); Mean Platelet Volume 8.6 fL (7.4-10.4); Platelet Count 264 10^3/uL (150-450); Red Blood Count 3.93 10^6 /uL (3.70-4.87); Red Cell Distribution Width 13 % (10-15)
[2021-08-23 23:21] LABS: INR 1.03 (0.86-1.15)
[2021-08-23 23:22] LABS: ALT 12 U/L (7-52); AST 24 U/L (13-39); Albumin 4.3 g/dL (3.2-5.2); Albumin/Globulin Ratio 1.2 (1-3); Alkaline Phosphatase 65 U/L (35-149); Anion Gap 10 mmol/L (2-11); Blood Urea Nitrogen 29 mg/dL (6-24); CO2 Carbon Dioxide 23 mmol/L (22-32); Calcium 9.6 mg/dL (8.6-10.3); Chloride 99 mmol/L (101-111); Globulin 3.7 g/dL (2-4); Glucose 308 mg/dL (70-100); Potassium 4.6 mmol/L (3.5-5.0); Sodium 132 mmol/L (135-145); eGFR CKD-EPI 40.7 (>60)
[2021-08-23 23:36] LABS: Troponin I 0.27 ng/mL (<0.03)
[2021-08-24] MEDS ORDERED: Ondansetron 4 mg VIAL 2 MG/ML 2 ml VIAL IV ONE (00:22)
[2021-08-24] MEDS ORDERED: Morphine 4 MG/ML VIAL (1 ml) IV ONE (00:22)
[2021-08-24 02:11] LABS: Troponin I 0.57 ng/mL (<0.03)
[2021-08-24] MEDS: Heparin DRIP 25,000 UNITS BAG 25,000 UNITS/500 ML BAG IV SCH ×2 (04:39→18:00)
[2021-08-24] MEDS: Heparin 5000 UNITS/ML 1 mL VIAL IV SCH (04:39)
[2021-08-24 04:40] LABS: Troponin I 1.82 ng/mL (<0.03)
[2021-08-24] MEDS: Nitro 2% OINT (Nitroglycerin) 1 INCH/PAK TOPICAL SCH ×3 (05:20→12:28)
[2021-08-24 07:29] LABS: Troponin I 3.36 ng/mL (<0.03)
[2021-08-24 10:37] LABS: Troponin I 7.98 ng/mL (<0.03)
[2021-08-24] MEDS ORDERED: diPHENhydraMINE 25 mg TAB PO PRN (10:40)
[2021-08-24] MEDS ORDERED: NS 0.9% 1000 ml BAG 1,000 ML IV SCH ×2 (10:45→12:30)
[2021-08-24] MEDS ORDERED: Lidocaine 1% VIAL 10 MG/ML VIAL ONE (11:15)
[2021-08-24] MEDS ORDERED: fentaNYL 100 mcg/2 ml 50 MCG/ML VIAL ONE (11:15)
[2021-08-24] MEDS ORDERED: nitroGLYCERIN DRIP 25,000 MCG/250 ML BTL ONE (11:15)
[2021-08-24] MEDS ORDERED: Midazolam 5 mg/5 ml VIAL 1 mg/ml 5 ml VIAL (5 mg) ONE (11:15)
[2021-08-24] MEDS ORDERED: Heparin 2 UNITS/ML 1000 mls 2,000 ML IV ONE (11:15)
[2021-08-24] MEDS ORDERED: VERAPAMIL 2.5 MG/ML 2 ML VIAL ** 5 mg/2 ml ONE (11:15)
[2021-08-24] MEDS ORDERED: Heparin 1,000 UNIT/ML 10 ml (10,000 UNITS) CATHLAB/DIALYSIS ONE (11:15)
[2021-08-24] MEDS ORDERED: Iodixanol 320 (CONTRAST) 100 ML SDV ONE (11:27)
[2021-08-24] MEDS ORDERED: Nitro 2% OINT (Nitroglycerin) 1 INCH/PAK ONE (12:19)
[2021-08-24] MEDS ORDERED: Dextrose 50% Syringe 50 ml 25 GM/50 ML SYRINGE IV PUSH PRN (16:24)
[2021-08-24] MEDS: Nitro Patch Removal Reminder TOPICAL SCH (18:04)
[2021-08-24] MEDS: Insulin GLARGINE 100 un/ml 10 ml VIAL SUBCUT SCH (18:22)
[2021-08-24] MEDS ORDERED: Insulin GLARGINE 100 un/ml 10 ml VIAL SUBCUT SCH (21:00)
[2021-08-24] MEDS: Metoclopramide 5 MG/ML VIAL (10 mg) IV PRN (22:02)
[2021-08-25] MEDS: Heparin 5000 UNITS/ML 1 mL VIAL IV SCH (01:09)
[2021-08-25] MEDS: Nitro 2% OINT (Nitroglycerin) 1 INCH/PAK TOPICAL SCH ×2 (06:22→13:57)
[2021-08-25 08:51] LABS: ABS Basophils 0.2 10^3/ul (0-0.2); ABS Lymphocytes 2.2 10^3/ul (1.0-4.8); ABS Monocytes 1.1 10^3/ul (0-0.8); ABS Neutrophils 9.5 10^3/ul (1.5-7.7); Eosinophil % 0.1 %; Hematocrit 38 % (35-47); Hemoglobin 12.8 g/dL (12.0-16.0); Lymphocyte % 17.1 %; Mean Corpuscular HGB Conc 34 g/dL (31-36); Mean Corpuscular Hemoglobin 33 pg (27-31); Mean Corpuscular Volume 96 fL (80-97); Mean Platelet Volume 8.3 fL (7.4-10.4); Platelet Count 282 10^3/uL (150-450); Red Blood Count 3.95 10^6 /uL (3.70-4.87); Red Cell Distribution Width 13 % (10-15); White Blood Count 12.9 10^3/uL (3.5-10.8)
[2021-08-25] MEDS ORDERED: Flu vaccine *QUAD* 2021-22* 0.5 ML SYRINGE IM ONE (09:00)
[2021-08-25 09:09] LABS: Albumin 3.9 g/dL (3.2-5.2); Albumin/Globulin Ratio 1.1 (1-3); Calcium 9.5 mg/dL (8.6-10.3); Globulin 3.4 g/dL (2-4); HDL Cholesterol 57.3 mg/dL; Potassium 4.4 mmol/L (3.5-5.0); Total Bilirubin 1.4 mg/dL (0.2-1.0); Total Protein 7.3 g/dL (6.4-8.9); eGFR CKD-EPI 48.6 (>60)
[2021-08-25] MEDS: Insulin GLARGINE 100 un/ml 10 ml VIAL SUBCUT SCH (10:16)
[2021-08-25] MEDS: Metoclopramide 5 MG/ML VIAL (10 mg) IV PRN (14:13)
[2021-08-25] MEDS: Nitro Patch Removal Reminder TOPICAL SCH (18:43)
[2021-08-26] MEDS: Metoclopramide 5 MG/ML VIAL (10 mg) IV PRN (05:38)
[2021-08-26] MEDS: Nitro 2% OINT (Nitroglycerin) 1 INCH/PAK TOPICAL SCH ×2 (05:38→15:31)
[2021-08-26 06:14] LABS: ABS Basophils 0.1 10^3/ul (0-0.2); ABS Eosinophils 0.1 10^3/ul (0-0.6); ABS Monocytes 1.4 10^3/ul (0-0.8); ABS Neutrophils 8.4 10^3/ul (1.5-7.7); Eosinophil % 0.4 %; Hematocrit 38 % (35-47); Lymphocyte % 23.3 %; Mean Corpuscular HGB Conc 34 g/dL (31-36); Mean Corpuscular Hemoglobin 33 pg (27-31); Mean Corpuscular Volume 96 fL (80-97); Mean Platelet Volume 9.2 fL (7.4-10.4); Nucleated Red Blood Cells % 0.1; Platelet Count 282 10^3/uL (150-450); Red Blood Count 3.96 10^6 /uL (3.70-4.87); Red Cell Distribution Width 14 % (10-15)
[2021-08-26 06:31] LABS: Calcium 9.7 mg/dL (8.6-10.3); Potassium 4.3 mmol/L (3.5-5.0); eGFR CKD-EPI 44.9 (>60)
[2021-08-26] MEDS ORDERED: Flu vaccine *QUAD* 2021-22* 0.5 ML SYRINGE IM ONE (09:00)
[2021-08-26] MEDS: Insulin GLARGINE 100 un/ml 10 ml VIAL SUBCUT SCH (09:51)
[2021-08-26] MEDS ORDERED: Enoxaparin 40 MG/0.4 ML SYR SUBCUT SCH (17:00)
[2021-08-27 06:19] LABS: ABS Eosinophils 0.1 10^3/ul (0-0.6); ABS Monocytes 1.4 10^3/ul (0-0.8); ABS Neutrophils 7.6 10^3/ul (1.5-7.7); Eosinophil % 0.6 %; Hematocrit 39 % (35-47); Hemoglobin 13.4 g/dL (12.0-16.0); Lymphocyte % 30.4 %; Mean Corpuscular HGB Conc 34 g/dL (31-36); Mean Corpuscular Hemoglobin 33 pg (27-31); Mean Corpuscular Volume 95 fL (80-97); Mean Platelet Volume 9.2 fL (7.4-10.4); Platelet Count 266 10^3/uL (150-450); Red Blood Count 4.09 10^6 /uL (3.70-4.87); Red Cell Distribution Width 13 % (10-15); White Blood Count 13.1 10^3/uL (3.5-10.8)
[2021-08-27 06:35] LABS: Calcium 9.4 mg/dL (8.6-10.3); Potassium 4.2 mmol/L (3.5-5.0); eGFR CKD-EPI 44.5 (>60)
[2021-08-27] MEDS ORDERED: Insulin GLARGINE 100 un/ml 10 ml VIAL SUBCUT SCH (09:00)
[2021-08-28 05:26] LABS: ABS Eosinophils 0.1 10^3/ul (0-0.6); ABS Lymphocytes 2.3 10^3/ul (1.0-4.8); ABS Monocytes 1.5 10^3/ul (0-0.8); ABS Neutrophils 8.6 10^3/ul (1.5-7.7); Eosinophil % 0.8 %; Hematocrit 41 % (35-47); Hemoglobin 14.1 g/dL (12.0-16.0); Lymphocyte % 18.1 %; Mean Corpuscular HGB Conc 34 g/dL (31-36); Mean Corpuscular Hemoglobin 33 pg (27-31); Mean Corpuscular Volume 96 fL (80-97); Platelet Count 268 10^3/uL (150-450); Red Blood Count 4.29 10^6 /uL (3.70-4.87); Red Cell Distribution Width 13 % (10-15); White Blood Count 12.6 10^3/uL (3.5-10.8)
[2021-08-28 05:47] LABS: Calcium 9.6 mg/dL (8.6-10.3); Potassium 4.4 mmol/L (3.5-5.0); eGFR CKD-EPI 44.9 (>60)
[2021-08-28] MEDS ORDERED: Insulin GLARGINE 100 un/ml 10 ml VIAL SUBCUT SCH (09:00)
[2021-08-28 11:54] VITALS: BP 121/52
== END 2021-08-28 16:20 | disposition home or self-care (01) | DRG 280 ==
LOC: ED 22:29 → SUATTDRO 08-24 03:57 → EDHOLD 08-24 03:57 → MEDTELE 08-24 06:00
PROVIDERS: ADMIT Hospitalist; ATTEND Internal Medicine

== ENCOUNTER 2024-02-12 15:24 | Observation (INO) ==
[2024-02-12] MEDS: Iodixanol (CONTRAST) 320 MG/ML 100 ML SDV IV ONE (15:49)
[2024-02-12 15:57] LABS: ABS Basophils 0.1 10^3/uL (0.0-0.1); ABS Eosinophils 0.1 10^3/uL (0.0-0.5); ABS Lymphocytes 4.8 10^3/uL (1.0-4.8); ABS Monocytes 1.2 10^3/uL (0.0-0.9); ABS Neutrophils 6.4 10^3/uL (1.5-7.6); Eosinophil % 0.6 %; Hematocrit 42.7 % (35-45); Hemoglobin 14.6 g/dL (11.5-14.3); Lymphocyte % 38.1 %; Mean Corpuscular Hemoglobin 33.8 pg (27-33); Mean Corpuscular Hgb Conc 34.1 g/dL (31-36); Mean Platelet Volume 8.7 fL (7.5-11.2); Platelet Count 215 10^3/uL (150-450); Red Blood Count 4.32 10^6/uL (3.63-4.92); White Blood Count 12.6 10^3/uL (3.8-11.8)
[2024-02-12 16:35] LABS: INR 0.95 (0.83-1.13)
[2024-02-12 17:12] LABS: Urine Appearance Clear; Urine Bilirubin Negative (Negative); Urine Blood Negative (Negative); Urine Color Colorless; Urine Glucose 4+ (>=1000 mg/dL) (Negative); Urine Ketones Negative (Negative); Urine Nitrite Negative (Negative); Urine Protein Negative (Negative); Urine Specific Gravity 1.018 (1.002-1.030); Urine Urobilinogen Negative (Negative); Urine pH 6.5 (5.0-8.0)
[2024-02-12 17:43] LABS: Urine Bacteria 1+ /HPF (Absent); Urine Red Blood Cell Trace(0-2/hpf) /HPF (0-Trace); Urine Squamous Epithelial Cell Present /HPF (Absent); Urine White Blood Cell Trace(0-5/hpf) /HPF (0-Trace)
[2024-02-12 17:48] LABS: High Sensitivity Troponin 1 Hr 49 pg/mL (<15)
[2024-02-12] MEDS: NS 0.9% 1000 ml BAG 1,000 ML IV ONE (18:20)
[2024-02-12] MEDS: cefTRIAXone 1 gm/50 mL D5W 1 GM/50 ML BAG IV ONE (18:20)
[2024-02-12 18:39] LABS: Albumin 4.3 g/dL (3.2-5.2); Albumin/Globulin Ratio 1.7 (1-3); Calcium 9.6 mg/dL (8.6-10.3); Creatinine, Serum 1.48 mg/dL (0.51-0.95); Direct Bilirubin 0.2 mg/dL (0.03-0.18); Globulin 2.6 g/dL (2-4); HDL Cholesterol 58.5 mg/dL; Indirect Bilirubin 1.5 mg/dL (0.3-1.0); Potassium 4.4 mmol/L (3.5-5.0); Total Bilirubin 1.7 mg/dL (0.2-1.0); Total Protein 6.9 g/dL (6.4-8.9); eGFR CKD-EPI 36.7 (>60)
[2024-02-12] MEDS ORDERED: Sulfur Hexaflouride MICROSPHR 25 MG VIAL IV ONE (20:10)
[2024-02-12] MEDS ORDERED: Dextrose 50% Syringe 50 ml 25 GM/50 ML SYRINGE IV PUSH PRN (20:56)
[2024-02-12] MEDS ORDERED: Lactated Ringers 1000 ml BAG 1,000 ML IV SCH (21:00)
[2024-02-12] MEDS: Aspirin EC 325 mg TAB.EC PO ONE (23:41)
[2024-02-12] MEDS: Lactated Ringers 1000 ml BAG 1,000 ML IV SCH (23:46)
[2024-02-13 06:17] LABS: ABS Basophils 0.1 10^3/uL (0.0-0.1); ABS Eosinophils 0.1 10^3/uL (0.0-0.5); ABS Lymphocytes 4.1 10^3/uL (1.0-4.8); ABS Monocytes 0.9 10^3/uL (0.0-0.9); ABS Neutrophils 4.7 10^3/uL (1.5-7.6); Eosinophil % 1.4 %; Hemoglobin 13.9 g/dL (11.5-14.3); Lymphocyte % 40.9 %; Mean Corpuscular Hemoglobin 33.5 pg (27-33); Mean Corpuscular Hgb Conc 33.9 g/dL (31-36); Mean Corpuscular Volume 99.1 fL (80-97); Mean Platelet Volume 8.8 fL (7.5-11.2); Platelet Count 216 10^3/uL (150-450); Red Blood Count 4.14 10^6/uL (3.63-4.92); Red Cell Distribution Width 13.2 % (12-17); White Blood Count 9.9 10^3/uL (3.8-11.8)
[2024-02-13 06:44] LABS: Creatinine, Serum 1.33 mg/dL (0.51-0.95); Phosphorus 4.2 mg/dL (2.5-5.0); eGFR CKD-EPI 41.7 (>60)
[2024-02-13 13:39] VITALS: BP 140/51
[2024-02-13] MEDS ORDERED: Enoxaparin 40 MG/0.4 ML SYR SUBCUT SCH (21:00)
[2024-02-14] MEDS ORDERED: Enoxaparin 40 MG/0.4 ML SYR SUBCUT SCH (21:00)
== END 2024-02-13 13:39 | disposition home or self-care (01) ==
LOC: EDHOLD 15:24 → ED 15:24 → SUATTDRO 20:10 → EDHOLD 02-13 07:40
PROVIDERS: ADMIT Student in an Organized Health Care Education/Training Program; ATTEND Student in an Organized Health Care Education/Training Program

== ENCOUNTER 2024-05-06 10:39 | Observation (INO) ==
[2024-05-06 11:12] LABS: ABS Basophils 0.1 10^3/uL (0.0-0.1); ABS Lymphocytes 2.5 10^3/uL (1.0-4.8); ABS Monocytes 0.7 10^3/uL (0.0-0.9); ABS Neutrophils 12.1 10^3/uL (1.5-7.6); ABS Nucleated RBC 0.01 10^3/ul; Eosinophil % 0.3 %; Hematocrit 42.1 % (35-45); Hemoglobin 14.1 g/dL (11.5-14.3); Lymphocyte % 16.1 %; Mean Corpuscular Hemoglobin 33.4 pg (27-33); Mean Corpuscular Hgb Conc 33.6 g/dL (31-36); Mean Corpuscular Volume 99.5 fL (80-97); Mean Platelet Volume 9.9 fL (7.5-11.2); Platelet Count 232 10^3/uL (150-450); Red Blood Count 4.23 10^6/uL (3.63-4.92); Red Cell Distribution Width 12.7 % (12-17); White Blood Count 15.4 10^3/uL (3.8-11.8)
[2024-05-06 12:02] LABS: ALT 16 U/L (7-52); Albumin 4.5 g/dL (3.2-5.2); Albumin/Globulin Ratio 1.6 (1-3); Alkaline Phosphatase 62 U/L (35-149); Anion Gap 9 mmol/L (2-16); Blood Urea Nitrogen 29 mg/dL (6-24); CO2 Carbon Dioxide 23 mmol/L (22-32); Calcium 9.8 mg/dL (8.6-10.3); Chloride 102 mmol/L (101-111); Creatinine, Serum 1.33 mg/dL (0.51-0.95); Globulin 2.8 g/dL (2-4); Glucose 257 mg/dL (70-100); Sodium 134 mmol/L (135-145); Total Bilirubin 1.6 mg/dL (0.2-1.0); Total Protein 7.3 g/dL (6.4-8.9); eGFR CKD-EPI 41.7 (>60)
[2024-05-06] MEDS: Iodixanol (CONTRAST) 320 MG/ML 100 ML SDV IV ONE (13:05)
[2024-05-06 14:18] LABS: Urine Appearance Clear; Urine Bilirubin Negative (Negative); Urine Blood Negative (Negative); Urine Color Colorless; Urine Glucose 4+ (>=1000 mg/dL) (Negative); Urine Ketones Negative (Negative); Urine Nitrite Negative (Negative); Urine Protein Negative (Negative); Urine Urobilinogen Negative (Negative); Urine pH 6.5 (5.0-8.0)
[2024-05-06] MEDS ORDERED: Dextrose 50% Syringe 50 ml 25 GM/50 ML SYRINGE IV PUSH PRN (17:12)
[2024-05-06 19:55] LABS: Potassium, Whole Blood 4.5 mmol/L (3.4-4.5)
[2024-05-06 21:36] LABS: Potassium Redraw 4.5 mmol/L (3.5-5.0)
[2024-05-07 08:06] LABS: Hematocrit 39.6 % (35-45); Hemoglobin 13.5 g/dL (11.5-14.3); Mean Corpuscular Hemoglobin 33.9 pg (27-33); Mean Corpuscular Volume 99.7 fL (80-97); Mean Platelet Volume 9.1 fL (7.5-11.2); Platelet Count 192 10^3/uL (150-450); Red Blood Count 3.97 10^6/uL (3.63-4.92); Red Cell Distribution Width 12.8 % (12-17); White Blood Count 11.3 10^3/uL (3.8-11.8)
[2024-05-07 08:27] LABS: Calcium 9.5 mg/dL (8.6-10.3); Creatinine, Serum 1.48 mg/dL (0.51-0.95); Potassium 5.3 mmol/L (3.5-5.0); eGFR CKD-EPI 36.7 (>60)
[2024-05-07] MEDS ORDERED: Sulfur Hexaflouride MICROSPHR 25 MG VIAL IV PRN (08:41)
[2024-05-07 18:01] LABS: HDL Cholesterol 45.1 mg/dL
[2024-05-08 06:21] LABS: ABS Basophils 0.1 10^3/uL (0.0-0.1); ABS Eosinophils 0.2 10^3/uL (0.0-0.5); ABS Lymphocytes 3.1 10^3/uL (1.0-4.8); ABS Monocytes 1.3 10^3/uL (0.0-0.9); ABS Neutrophils 5.2 10^3/uL (1.5-7.6); ABS Nucleated RBC 0.01 10^3/ul; Eosinophil % 1.8 %; Hemoglobin 13.5 g/dL (11.5-14.3); Lymphocyte % 31.5 %; Mean Corpuscular Hemoglobin 34.3 pg (27-33); Mean Corpuscular Hgb Conc 34.6 g/dL (31-36); Mean Corpuscular Volume 98.9 fL (80-97); Mean Platelet Volume 8.9 fL (7.5-11.2); Nucleated Red Blood Cells % 0.1 %/100WBC (0.0-0.8); Platelet Count 186 10^3/uL (150-450); Red Blood Count 3.94 10^6/uL (3.63-4.92); Red Cell Distribution Width 12.6 % (12-17); White Blood Count 9.9 10^3/uL (3.8-11.8)
[2024-05-08 06:38] LABS: Calcium 9.4 mg/dL (8.6-10.3); Creatinine, Serum 1.54 mg/dL (0.51-0.95); Magnesium 2.2 mg/dL (1.9-2.7); Potassium 4.7 mmol/L (3.5-5.0)
[2024-05-08 11:45] VITALS: BP 130/112
== END 2024-05-08 15:35 | disposition home or self-care (01) ==
LOC: EDHOLD 10:39 → ED 10:39 → SUATTDRO 14:28 → MEDTELE 16:59
PROVIDERS: ADMIT Student in an Organized Health Care Education/Training Program; ATTEND Student in an Organized Health Care Education/Training Program